=== PATIENT | female | born 1990 | race Two or more races ===

== ENCOUNTER 2024-10-19 08:57 | Emergency (ER) | payer SELFPAY ==
[2024-10-19 08:58] VITALS: BMI 28.3
[2024-10-19 09:15] VITALS: BP 116/78; PULSE 98; RESP 20; TEMP 37.1; O2SAT 97
--- NOTE | 2024-10-19 09:21 | XR_ITS ---
Examination: Complete OB ultrasound, less than 14 weeks, transabdominal Date and time of exam: October 19, 2024 1040 hours INDICATION: Vaginal bleeding beginning one week ago with pelvic pain Technique: Obstetrical ultrasound images less than 14 weeks performed via transabdominal imaging Findings: A normal shaped single intrauterine gestation is present in the uterus. pole 1.4 cm corresponds to 7 weeks 5 days gestational age Cardiac motion 178 BPM Ultrasonographic survey of visible and placental structures unremarkable. Amniotic fluid volume appears appropriate for this estimated gestational age. Right ovary 3.9 x 1.0 x 2.6 cm arterial flow Right adnexal soft tissue mass with shadowing 6.7 x 4.4 x 4.0 cm Left ovary 2.9 x 1.8 x 2.7 cm arterial flow IMPRESSION: Viable intrauterine gestation 7 weeks 5 days Right adnexal solid mass with shadowing 6.7 x 4.4 x 4.1 cm, differential would include ovarian tumor including dermoid tumor, ectopic not excluded based on the sonographic appearance, clinical correlation advised and short-term follow-up transvaginal pelvic sonography recommended.
--- NOTE | 2024-10-19 09:21 | PD.EDRME ---
Rapid Medical Screening Exam E Arrival date/time: 10/19/24 08:57 33-year-old female presents to the emergency department today stating that she is approximately 7 weeks patient currently on Eliquis as she has had previous blood clots with . Currently patient complains of cough, congestion, body aches nausea and vomiting patient reports that her son was recently positive for influenza and she currently is being treated for influenza Chief Complaint: Flu Like Symptoms Time Seen by Provider: 10/19/24 08:58 Vital signs: Vital Signs Temperature 98.7 F 10/19/24 09:15 Pulse Rate 98 10/19/24 09:15 Respiratory Rate 20 10/19/24 09:15 Blood Pressure 116/78 10/19/24 09:15 Pulse Oximetry (%) 97 10/19/24 09:15 Oxygen Delivery Method Room Air 10/19/24 09:15
[2024-10-19 09:58] LABS: Basophils % (Auto) 0 % (0-2.5); Eosinophils % (Auto) 0 % (0-10); Hematocrit 38.6 % (36.0-46.0); Hemoglobin 12.6 g/dL (12.0-16.0); Immature Granulocytes % (Auto) 0 % (0-0); Immature Granulocytes Auto 0.01 Thou/mm3 (0.00-0.00); Lymphocytes # (Auto) 1.6 Thou/mm3 (1.0-4.8); Lymphocytes % (Auto) 32 % (10-50); Mean Corpuscular HGB Conc 32.6 g/dl (31.0-37.0); Mean Corpuscular Hemoglobin 25.7 pg (25.0-35.0); Mean Corpuscular Volume 79 fL (80-100); Monocytes # (Auto) 0.5 Thou/mm3 (0.0-0.8); Monocytes % (Auto) 9 % (0-12); Neutrophils % (Auto) 58 % (37-80); Nucleated Red Blood Cell % 0 /100 WBC (0); Platelet Count 243 Thou/mm3 (140-440); RDW Standard Deviation 36.3 fL (36.4-46.3); White Blood Count 5.1 Thou/mm3 (3.6-11.0)
[2024-10-19 10:17] LABS: Alanine Aminotransferase 22 U/L (10-49); Albumin, Serum 4.8 gm/dL (3.5-5.0); Albumin/Globulin Ratio 1.8 (1.2-2.2); Alkaline Phosphatase 73 U/L (46-116); Anion Gap 11 (7-16); Aspartate Amino Transferase 20 U/L (0-34); BUN/Creatinine Ratio 13 Ratio (12-20); Bilirubin,Total 0.4 mg/dL (0.3-1.2); Blood Urea Nitrogen 9 mg/dL (9-23); Calcium 9.5 mg/dL (8.3-10.6); Calcium (Corrected) 9.5 mg/dL (8.5-10.1); Carbon Dioxide 25.4 mMol/L (20.0-31.0); Chloride 104 mMol/L (98-107); Creatinine (Component) 0.7 mg/dL (0.6-1.3); Estimated Creatinine Clearance 98.5 mL/min (>60); Globulin 2.6 gm/dL (2.3-3.5); Glucose 92 mg/dL (74-106); Osmolality,Calculated 278 (275-295); Potassium 3.2 mMol/L (3.4-5.1); Sodium 140 mMol/L (136-145); Total Protein 7.4 gm/dL (5.7-8.2); eGFR > 60 See Note
[2024-10-19] MEDS: METOCLOPRAMIDE INJ 5 MG/ML VIAL 2 ML 10 MG IM (10:26)
[2024-10-19 10:50] LABS: Beta HCG,Quantitative 78438 mIU/mL (<5.0)
[2024-10-19 11:32] LABS: Collection Type, Urine Clean Catch
[2024-10-19 11:42] LABS: Bacteria,Urine Rare; Bilirubin,Urine Negative (Negative); Blood,Urine Negative (Negative); Clarity,Urine Clear (Clear/Hazy); Color,Urine Yellow (Lt Yel-Yel); Glucose, Urine Negative (Negative); Ketones,Urine 3+ (Negative); Leukocyte Esterase,Urine Positive (Negative); Nitrite,Urine Negative (Negative); PH,Urine 6.5 (5.0-7.0); Protein,Urine 1+ (Neg - Trace); RBC,Urine 7 /hpf (0-3); Specific Gravity,Urine 1.031 (1.001-1.035); Squamous Epithelial Cell,Urine 1 /hpf (0-5); WBC,Urine 2 /hpf (0-5)
[2024-10-19 13:42] VITALS: BP 111/80; PULSE 97; RESP 18; TEMP 36.8; O2SAT 96
--- NOTE | 2024-10-19 14:22 | PD.EDURI ---
Upper Respiratory Inf. RME/HPI General Chief Complaint: Flu Like Symptoms Stated Complaint: EXPOSED TO FLU B, FLU SYMPTOMS FOR 8 DAYS Time Seen by Provider: 10/19/24 08:58 Arrival date/time: 10/19/24 08:57 RME / HPI RME / HPI Narrative: DR. LIVE MAIN ED EVALUATION: 33 year old female, who is 7 weeks , presents to the Emergency Department with complaints of cough, congestion, body aches, nausea and vomiting. Symptoms are moderate. Sick contacts at home, her son tested positive for influenza. PMHx: Hypothyroidism, anxiety, and on Eliquis. History of DVT in previous . Social Hx: No tobacco, alcohol, or substance use. Related Data Home Medications ?Medication ?Instructions ?Recorded ?Confirmed escitalopram oxalate 20 mg tablet 20 mg PO QDAY 03/09/21 09/16/22 (Lexapro) trazodone 50 mg tablet 15 mg PO HS insomnia 03/09/21 03/09/21 Previous Rx's ?Medication ?Instructions ?Recorded methylprednisolone 4 mg tablets in 4 mg PO QAM #21 tabs 09/29/22 a dose pack (Medrol ([place])) apixaban 5 mg tablet (Eliquis) 5 mg PO BID #30 tabs 10/19/22 apixaban 5 mg tablet (Eliquis) 10 mg (2 x 5 mg) PO BID #28 tabs 10/19/22 cephalexin 500 mg capsule 500 mg PO TID #21 caps 10/19/24 metoclopramide HCl 10 mg tablet 10 mg PO Q6H PRN nausea and 10/19/24 vomiting #10 tabs Allergies Allergy/AdvReac Type Severity Reaction Status Date / Time ibuprofen Allergy Severe Hives Verified 10/19/24 09:02 Review of Systems Review of Systems Systems Reviewed: All systems reviewed, normal except as documented Narrative Review of Systems: GEN: No fever, no chills, no weight loss EYES: No discharge, no visual changes, no pain HEENT: No ear pain, + congestion, no sore throat PULM: No shortness of breath, + cough, + congestion CV: No chest pain, no dyspnea on exertion, no palpitations GI: + nausea, + vomiting, no diarrhea, no pain, no constipation : No frequency, no urgency and no dysuria MUSC/SKEL: + body aches, no back pain SKIN: No rash PSYCH: No hallucinations, no depression HEME/LYMPH: No easy bleeding or bruising tendencies NEURO: No weakness, no headache Past Medical History Past Medical History NEUROLOGIC: Negative Neurological Disorders CARDIAC: Positive Hypertension; Negative Cardiac Disorders, Myocardial Infarction, Cardiac Arrhythmia, Atrial Fibrillation, Angina, Heart Murmur, Coronary Artery Disease, Atherosclerotic Heart Disease, Peripheral Vascular Disease, Hypercholesterolemia, Aneurysm, Congestive Heart Failure, Congenital Heart Disease, Valvular Heart Disease, Rheumatic Fever, Cardiomyopathy, Edema, Pericarditis, Cellulitis, Deep Vein Thrombosis, Hypotension or Varicose Veins RESPIRATORY: Positive Asthma; Negative Chronic Obstructive Pulmonary Disease (COPD) GASTROINTESTINAL: Negative Gastrointestinal Disorders or Young's Esophagus GENITOURINARY: Negative Genitourinary Disorders or Renal Disease REPRODUCTIVE: Positive Previous Pregnancies; Negative Endometriosis, Pelvic Inflammatory Disease or Uterine Prolapse MUSCULOSKELETAL: Negative Musculoskeletal Disorders ENT: Negative Cataracts, Glaucoma, Blind, Retinal Detachment, Macular Degeneration, Ear Infection, Deafness or Eye Prosthesis ENDOCRINE: Positive Hypothyroidism (2014- taking thyroid medicine. 2015 stopped taking as per md no need to romaine); Negative Endocrine Disorders, Diabetes Mellitus Type 1, Diabetes Mellitus Type 2, Hypoglycemia, Rodanthe's Syndrome, [place]'s Disease, Hyperthyroidism, Parathyroid Disease, Pituitary Disease, Systemic Lupus Erythematosus, Syndrome of Inappropriate Antidiuretic Hormone (SIADH), Adrenal Disease or Graves' Disease HEMATOLOGIC: Negative Blood Disorders or Sickle Cell Disease PSYCHO/SOCIAL: Positive Depression and Anxiety OTHER HISTORY: Negative Autoimmune Disease, Falls, Blood Transfusions, Anesthesia Reactions, MRSA, Clostridium Difficile or Cancer Family History FAMILY HISTORY: Negative Family Psychiatric Problems (alcohol abuse- dad side), Family Respiratory Disorders, Family Cardiac Disorders (high cholesterol- mother and father), Family Gastrointestinal Problems, Family Cancer, Family Surgery or Family Anesthesia Reaction Surgical History SURGICAL: Negative Cardiac Surgery, Pacemaker, Endocrine Surgery, Thyroidectomy, Abdominal Surgery, Nephrectomy or Joint Replacement Social History SMOKING STATUS: Never smoker SECOND HAND EXPOSURE: No SUBSTANCE USE: does not use ED Exam Narrative Physical exam: GENERAL APPEARANCE: alert and oriented x 4, well-developed, well-nourished, no acute distress VITALS: All vitals were reviewed and the pulse ox is 96% on room air, which is normal according to my interpretation. HEENT: Normocephalic, atraumatic; pupils equal, round, reactive to light; EOMI; mucous membranes pink, moist; oropharynx clear NECK: Supple LUNGS: CTABL; no wheezes, no rales, no rhonchi HEART: Regular rate, regular rhythm; normal S1, S2; no murmurs ABDOMEN: normal BS; soft, no tenderness, no guarding, no rebound; no masses, no organomegaly, no hernia BACK: no CVA tenderness EXTREMITIES: atraumatic; no edema NEUROLOGIC: awake; alert and oriented x4; cranial nerves II-XII grossly intact; no focal sensory or motor deficits PSYCHIATRIC: appropriate mood and affect SKIN: warm, dry, normal color; no rashes Course Quality Measures none Orders Category Date Time Status Bedside Influenza A&B Antigen Test NOW Care 10/19/24 09:03 Completed US OB <= 14 weeks fetus Stat Exams 10/19/24 09:21 Completed ABO/RH Type Stat Lab 10/19/24 09:50 Completed Beta HCG,Quantitative Stat Lab 10/19/24 09:50 Completed CBC Stat Lab 10/19/24 09:50 Completed Comprehensive Metabolic Panel Stat Lab 10/19/24 09:50 Completed UA [Urinalysis] Stat Lab 10/19/24 11:11 Completed Urine Culture Stat Lab 10/19/24 11:11 Received KCL 10% Liq UDC 15 ML Med 10/19/24 14:05 Discontinued 40 meq PO X1 ONE Magnesium Oxide [Mag-Ox 400] Med 10/19/24 14:06 Discontinued 400 mg PO X1 ONE Metoclopramide Inj [Reglan Inj] Med 10/19/24 09:21 Discontinued 10 mg IM X1 ONE cephALEXin [Keflex] Med 10/19/24 14:00 Discontinued 500 mg PO X1 ONE Vital Signs Vital signs: Vital Signs Temperature 98.7 F 10/19/24 09:15 Pulse Rate 98 10/19/24 09:15 Respiratory Rate 20 10/19/24 09:15 Blood Pressure 116/78 10/19/24 09:15 Pulse Oximetry (%) 97 10/19/24 09:15 Oxygen Delivery Method Room Air 10/19/24 09:15 Upper Respiratory Infection MDM Narrative MDM Narrative:: Jaja Hackett am scribing for and in the presence of Dr. Live. Patient data External records reviewed:: [facility] previous records (Reviewed last ED visit dated 10/19/22, discharged with the following: DVT (deep venous thrombosis).) Clinical information provided by:: patient Social determinants that could affect healthcare access:: none Patient has the following chronic illnesses:: Hypothyroidism, anxiety, and on Eliquis. History of DVT in previous . How is presenting disease/condition affected by chronic disease/condition?: uneffected by Evaluation data The following diagnostics were reviewed and interpreted by me:: lab results and radiology exam(s) Lab and/or radiology exams considered but not ordered:: none Interpretation Summary: Procedure(s): US OB <= 14 weeks fetus Accession Number(s): [id number] cc: Johnny (SEKOU),Valdo SAPP; Tariq Pretty TALENT ACQUISITION ASSISTANT; Saad Bernabe MD~ Examination: Complete OB ultrasound, less than 14 weeks, transabdominal Date and time of exam: October 19, 2024 1040 hours INDICATION: Vaginal bleeding beginning one week ago with pelvic pain Technique: Obstetrical ultrasound images less than 14 weeks performed via transabdominal imaging Findings: A normal shaped single intrauterine gestation is present in the uterus. pole 1.4 cm corresponds to 7 weeks 5 days gestational age Cardiac motion 178 BPM Ultrasonographic survey of visible and placental structures unremarkable. Amniotic fluid volume appears appropriate for this estimated gestational age. Right ovary 3.9 x 1.0 x 2.6 cm arterial flow Right adnexal soft tissue mass with shadowing 6.7 x 4.4 x 4.0 cm Left ovary 2.9 x 1.8 x 2.7 cm arterial flow IMPRESSION: Viable intrauterine gestation 7 weeks 5 days Right adnexal solid mass with shadowing 6.7 x 4.4 x 4.1 cm, differential would include ovarian tumor including dermoid tumor, ectopic not excluded based on the sonographic appearance, clinical correlation advised and short-term follow-up transvaginal pelvic sonography recommended. Dictated By: Saad Bernabe MD Medications / Prescriptions Medications or Prescriptions considered but not ordered:: none Medication administrations:: Medication Administration History Discontinued Medications Cephalexin HCl (Cephalexin 250 Mg Capsule) 500 mg PO X1 ONE Stop: 10/19/24 14:01 Last Admin: 10/19/24 14:23 Dose: 500 mg Documented By: Magnesium Oxide (Magnesium Oxide 400 Mg Tablet) 400 mg PO X1 ONE Stop: 10/19/24 14:07 Last Admin: 10/19/24 14:23 Dose: 400 mg Documented By: Metoclopramide HCl (Metoclopramide Inj 5 Mg/Ml Vial 2 Ml) 10 mg IM X1 ONE; Protocol Stop: 10/19/24 09:22 Last Admin: 10/19/24 10:26 Dose: 10 mg Documented By: BREANNA Potassium Chloride (Potassium Chloride 10% 20 Meq/15 Ml Udc) 40 meq PO X1 ONE Stop: 10/19/24 14:06 Last Admin: 10/19/24 14:24 Dose: 40 meq Documented By: see above Consultations Consultation(s) initiated? (list below): No Diagnosis Upper Respiratory Differential Diagnosis: upper respiratory infection, viral infection, influenza and other (UTI during ) Most likely diagnosis given after review of the tests above:: Influenza B UTI during Ovarian mass, right Hypokalemia Admission Indicated Admission indicated?: not indicated Admission Request Was there a request for admission?: No Disposition Plan Disposition Plan: Discharge Discharge Attestation Discharge Attestation: The patient and all family members were given an opportunity to ask questions and understood the discharge instructions. Discharge instructions specifically effects, indications for sooner follow up or return to the emergency department, and the expected course of current diagnosis. Patient condition: Stable Discharge Plan Plan Patient Disposition: HOME (Self Care) Prescriptions/Referrals Prescriptions/Med Rec: New metoclopramide HCl 10 mg tablet 10 mg PO Q6H PRN (Reason: nausea and vomiting) Qty: 10 0RF cephalexin 500 mg capsule 500 mg PO TID Qty: 21 0RF No Action trazodone 50 mg Tablet 15 mg PO HS Rx Instructions: per pt takes only about 10mg (half of 20mg), and only takes rarely if she really needs it for sleep. escitalopram oxalate [Lexapro] 20 mg Tablet 20 mg PO QDAY Rx Instructions: per patient 30mg prescribed, but only takes 20mg. methylprednisolone [Medrol ([place])] 4 mg tablets,dose pack 4 mg PO QAM Qty: 21 0RF Eliquis 5 mg tablet 10 mg PO BID Qty: 28 0RF Eliquis 5 mg tablet 5 mg PO BID Qty: 30 1RF Referrals: Tariq Pretty, TALENT ACQUISITION ASSISTANT [Primary Care Provider] - In 1 week Problem List Clinical Impression: Influenza B, UTI (urinary tract infection) during , , Ovarian mass, right, Hypokalemia Patient/Caregiver Discharge Instructions Education Materials: Influenza (Flu) and , First Trimester, ED CYSTITIS Female Adult Additional Instructions: The ultrasound shows a normal in your uterus. The results are uncertain, however the ultrasound also indicates a possible mass near your right ovary. The concern would be for a possible ectopic . Follow up with your residential collections in 2 days for repeat ultrasound and further workup and management. Return to the emergency department immediately if you experience pelvic pain or vaginal bleeding. Print Language: Persian Stand Alone Forms: Michelle Award Info., Patient Portal Info Letter
[2024-10-19] MEDS: MAGNESIUM OXIDE 400 MG TABLET PO (14:23)
[2024-10-19] MEDS: cephALEXin 250 MG CAPSULE 500 MG PO (14:23)
[2024-10-19] MEDS: POTASSIUM CHLORIDE 10% 20 MEQ/15 ML UDC 40 MEQ PO (14:24)
== END 2024-10-19 14:40 | disposition home or self-care (01) ==
PROVIDERS: Nurse Practitioner Primary Care; Emergency Provider Emergency Medicine; PCP Nurse Practitioner Family
DX: O98.511 Other viral diseases complicating pregnancy, first trimester (principal); J10.1 Influenza due to other identified influenza virus with other respiratory manifestations; O23.41 Unspecified infection of urinary tract in pregnancy, first trimester; N39.0 Urinary tract infection, site not specified; O99.281 Endocrine, nutritional and metabolic diseases complicating pregnancy, first trimester; E87.6 Hypokalemia; O34.81 Maternal care for other abnormalities of pelvic organs, first trimester; N83.8 Other noninflammatory disorders of ovary, fallopian tube and broad ligament; Z3A.01 Less than 8 weeks gestation of pregnancy
CPT/HCPCS: 36415; 76801; 80053; 81001; 84702; 85025; 86900; 86901; 87086; 87400; 96372; 99284; J2765; A9270